=== PATIENT | male | born 1960 | race Caucasian/White ===

== ENCOUNTER 2017-08-20 15:35 | Inpatient (IN) | payer BC ==
[2017-08-20] VITALS (7 sets, daily range): BP systolic 128–169; BP diastolic 80–96
[~2017-08-20] VITALS: Ht 185.4 cm; Wt 134.8 kg
--- NOTE | ~2017-08-20 | PROC NOTE ---
[place], [place] PROCEDURE NOTE NAME: RONEN PRABHAKAR SR UNIT #: [id number] ROOM: [facility] DOCTOR: RIKA ARCHULETA MD,ROSA MARIA BIRTHDATE: [birth year] DOS: 08/22/2017 PROCEDURE: Preoperative bronchoscopy was done for the patient in the OR. PREOPERATIVE DIAGNOSIS: Area of atelectasis of right lower lobe for this patient with possibility acute pneumonia. POSTOPERATIVE DIAGNOSIS: Area of atelectasis of right lower lobe for this patient with possibility acute pneumonia. PROCEDURE DESCRIPTION: Informed consent obtained from the patient. The patient was brought to the OR and placed in supine position. Conscious sedation administered by the Anesthesia Department. After achieving proper sedation, airway introduced into the mouth. Bronchoscope advanced to the airway into laryngeal area. Epiglottis vocal cord were seen. Vocal cords were moving symmetrically with movements. Bronchoscope and vocal cords and tracheal lumen. The tracheal lumen for the patient was noted with minimal secretion, which was suctioned out. The right upper, right middle, right lower, left upper, lingular and lower lobe bronchi were all examined. Small to moderate amount of secretion which appeared to be purulent in the left endobronchial tree, which was suctioned out. There were no endobronchial obstruction noted in any of the endobronchial tree including the right lower lobe. The bronchial washing taken from right lower lobe for the patient without any difficulty. Bronchial washing sent for all the cultures. Procedure well tolerated by the patient. Postoperative findings were discussed with the patient's family members in the recovery room. No changes in treatment at this time will be needed. ROSA MARIA MELÉNDEZ MD CM:PROCNOTE:PROCEDURE NOTE [id number] ROSA MARIA ARCHULETA MD
--- NOTE | ~2017-08-20 | CON ---
[place], [place] REPORT OF CONSULTATION NAME: [facility]AKAR SR [facility]: [id number] UNIT #: [id number] ROOM: [facility] DOCTOR: RIKA ARCHULETA MDROSA MARIA BIRTHDATE: [birth year] DOS: 08/21/2017 PULMONARY CONSULTATION, EVALUATION AND MANAGEMENT REASON FOR CONSULTATION: To assess the patient for current shortness breath, wheezing and cough. HISTORY OF PRESENT ILLNESS: This is a 56-year-old white male patient who has been seen in my office yesterday for followup visit after initial assessment. The patient was seen originally in office on 08/14/2017. The patient reported having symptoms of shortness of breath, which occurs with minimal exertion. These symptoms of shortness of breath has been noted with gradual progression over the last several months. The patient was noted with significant severe exercise intolerance. He was seen in the office yesterday, noted with severe increased shortness of breath that started last Sunday. The patient's symptoms were also noted with cough, which has been noted mild to moderate without any sputum expectoration. He was also noted with severe audible wheezing yesterday. After assessment in the office, the patient was sent to the Emergency Room for further assessment for this problem and possible hospitalization. The patient assessed in the Emergency Room and admitted to the hospital. The pulse oxygen saturation noted 91% at rest on room air. Since hospitalization, the patient has been still noted symptoms of shortness breath, which were noted somewhat decreased from previously. Denies symptoms of chest pain or hemoptysis. Denies symptoms of chest trauma. REVIEW OF SYSTEMS: CONSTITUTIONAL: He does report symptoms of fatigue, tiredness. There were no symptoms of fever or chills. EYES: Denies any burning, redness, or tenderness. EARS, NOSE, AND THROAT SYMPTOMS: Denies sore throat, hoarseness, otalgia, postnasal drainage or epistaxis. CARDIOVASCULAR: Denies anginal pain, edema, pain of the lower extremities or palpitation. GASTROINTESTINAL SYMPTOMS: The patient denies symptoms of nausea, vomiting, diarrhea, abdominal pain, hematemesis, melena, hematochezia, abnormal weight loss, history of chronic severe obesity was noted, which was progressive. GENITOURINARY SYMPTOMS: No dysuria, suprapubic pain or hematuria. MUSCULOSKELETAL SYMPTOMS: Without any acute deformities. SKIN: Denies any abnormal lesions or rashes. MUSCULOSKELETAL SYMPTOMS: For the patient was noted without any pain or deformities or redness or tenderness. CENTRAL NERVOUS SYSTEM: The patient denies dizziness, headache, diplopia or syncopal episodes. Remaining systems were reviewed. They were noted all negative. PAST MEDICAL HISTORY: 1. Known with history of bronchial asthma. 2. Obstructive sleep apnea disorder treated with the CPAP. 3. The patient with moderate obesity, BMI of 38. [place], [place] REPORT OF CONSULTATION NAME: RONEN PRABHAKAR SR UNIT #: [id number] ROOM: [facility] DOCTOR: RIKA ARCHULETA MD,ROSA MARIA BIRTHDATE: [birth year] 4. Intervertebral disk disease of the spine. 5. Gastroesophageal reflux. 6. Essential hypertension. 7. Neurotic depression. 8. Peripheral neuropathy. 9. Allergic rhinitis. PAST SURGICAL HISTORY: Noted with a rhinoplasty. SOCIAL HISTORY: The patient is , has 2 children, lives at home. He has worked 36 years in the [employer]. He was noted a nonsmoker lifetime. FAMILY HISTORY: The patient's father at 75 due to complication of myocardial infarction. Mother at age 6060 years old, complication of myocardial infarction as well. CURRENT MEDICATIONS: As follows: 1. Invokana 100 mg p.o. daily. 2. Sertraline 100 mg daily. 3. Protonix 20 mg p.o. b.i.d. 4. Aspirin 81 mg p.o. daily. 5. Metoprolol succinate 50 mg daily. 6. Losartan 100 mg daily. 7. Enoxaparin 40 mg subcutaneous daily for DVT prophylaxis. 8. Potassium phosphate 500 mg p.o. t.i.d. 9. Mucinex 1200 mg p.o. b.i.d. 10. Ranexa 500 mg p.o. b.i.d. 11. Levemir insulin. 12. IV Solu-Medrol 60 mg q.8 hours. 13. DuoNeb q.4 hours. 14. Levaquin 500 mg IV daily. 15. Other p.r.n. medication for symptoms management. DRUG ALLERGIES: NOTED ALLERGY TO THE HYDROCODONE. PHYSICAL EXAMINATION: GENERAL: This is a 56-year-old white male who has been currently noted awake and alert without any acute distress this morning. The patient height was recorded 6 feet 1 inch, weight of 291 pounds, BMI 38. VITAL SIGNS: Noted normal temperature, respiratory rate 16-20, heart rate 78-75, blood pressure 129/76-147/96. Pulse oxygen saturation of the patient recorded on 2 L nasal cannula 92% saturation. HEENT: Shows severe obesity, which is noted chronic. Head was atraumatic. Eyes nonicterus. Severe reduced posterior pharyngeal space with high tongue base and crowding of soft tissue structures. NECK: Noted with chronic obesity. CARDIOVASCULAR: S1, S2 audible without any added sounds. LUNGS: Noted generally reduced breath sounds in the lungs bilaterally with expiratory wheezing noted in the lungs. ABDOMEN: Noted severe obesity. Bowel sounds present without any tenderness. [place], [place] REPORT OF CONSULTATION NAME: RONEN PRABHAKAR SR UNIT #: [id number] ROOM: [facility] DOCTOR: RIKA ARCHULETA MD,ROSA MARIA BIRTHDATE: [birth year] EXTREMITIES: Noted chronic obesity without any edema, clubbing, cyanosis. VISIBLE SKIN: No lesions or rashes. CENTRAL NERVOUS SYSTEM: The patient was noted cranial nerves 2-12 intact. MUSCULOSKELETAL: Without any acute deformities. LABORATORY DATA: The lactic acid noted yesterday 2.0 on admission. CBC on 08/20/2017; WBC count 11.2, hemoglobin 17.8, hematocrit 53.4, platelet count 26,000. The lactic acid later noted 2.8. Follow up lactic acid 1.7. Troponin was normal. CBC of patient that was done this morning; hemoglobin 18.3, hematocrit 54.3 with platelet count as normal. CMP of the patient this morning; hemoglobin and hematocrit normal, platelet count were normal. Phosphorus 2.1. The PT, PTT of patient this morning were noted as normal. Chest x-ray 1 view that was done for this patient was noted without any acute abnormal process except elevation of right hemidiaphragm, which has been known previously remains unchanged. IMPRESSION: 1. The patient with current symptoms of shortness of breath with acute exacerbation of chronic obstructive pulmonary disease with worsening of the shortness of breath. 2. Polycythemia, most likely secondary to chronic exertional hypoxia, nocturnal hypoxia would be considered. 3. History of obstructive sleep apnea disorder. 4. Severe obesity as well. 5. Fever. CT scan of the chest that was done in [facility] for the patient on 07/23/2017 shows some area of atelectasis and pneumonia in the right lower lobe. 6. Possibility of pneumonia, cannot be excluded. 7. The patient with general anxiety disorder as well. PLAN OF THERAPY: At this time, the patient will be continued on the current dose of corticosteroids without any changes and bronchodilators. CT scan of the chest will be repeated again with intravenous contrast to exclude any additional pulmonary process. However, the sniff test to be completed initially to rule out diaphragmatic paralysis. Therapeutic bronchoscopy was also discussed with the patient to be done tomorrow morning for assessment of the right lower lobe for possible atelectasis with pneumonia. The risks and benefits of procedure were discussed. Oxygen supplementation, maintain saturation 90% or greater. Continue to monitor hemoglobin and hematocrit closely. If the hemoglobin and hematocrit continue to increase, therapeutic phlebotomy will be needed. Supportive therapy, plan of management. The patient would also require to be assessed to optimize the management of sleep apnea disorder in future as well. He might require oxygen assessment prior to home discharge for the need of oxygen at home to be determined. All other supportive therapy, plan of management and care plan. Thanks for allowing me to participate in the care of this patient. [place], [place] REPORT OF CONSULTATION NAME: RONEN [facility]AKAR SR [facility] [id number] UNIT #: [id number] ROOM: [facility] DOCTOR: ROSA MARIA GARG MD BIRTHDATE: [birth year] ROSA MARIA MELÉNDEZ MD CM:CONSTR:REPORT OF CONSULTATION 1338 08/22/17 0045 interface
--- NOTE | ~2017-08-20 | PROC NOTE ---
[place], [place] PROCEDURE NOTE NAME: RONEN PRABHAKAR SR UNIT #: [id number] ROOM: 501 DOCTOR: MAYELIN PONCE BIRTHDATE: [birth year] DOS: 08/23/2017 MODIFIED BARIUM SWALLOW LOCATION: [facility], room 501, bed 1. ORDERING PHYSICIAN: Moni Rangel. RADIOLOGIST: Dr. Eugene. BACKGROUND INFORMATION: The patient is a 56-year-old male who was seen for a modified barium swallow. This test was ordered to rule out aspiration due to progressive shortness of breath and pneumonia. Further medical history includes bronchitis, hypertension, diabetes, neuropathy in feet, obstructive sleep apnea with use of CPAP and GERD. The patient currently receives a regular diet and thin liquid. He reported difficulty with swallowing characterized by food sticking in the mid sternal area in the past. He reported that this has not been occurring lately. He did state that he has had esophageal dilation performed twice and stated that he is scheduled for a third dilation in about a month. He currently receives a regular diet and thin liquids for today's assessment. He was alert and able to follow all commands. Oral peripheral examination revealed presence of natural teeth and lingual labial and buccal skills within normal limits in terms of strength, range of motion, and coordination. The patient reported an improvement in his breathing. He was not requiring oxygen at the time of assessment. METHODS AND MATERIALS USED FOR THE EXAM: The patient was positioned in the lateral plane and exam was viewed under fluoroscopy. The patient was presented with a variety of consistencies to assess swallowing skills including applesauce mixed with barium presented in half teaspoon amounts, barium-coated cookie, and sandwich taken in bite size pieces and thin liquid barium taken by cup. ORAL PHASE: Unremarkable. PHARYNGEAL PHASE: Unremarkable. ESOPHAGEAL PHASE: This phase of the swallow was not formally assessed during this exam. IMPRESSIONS AND RECOMMENDATIONS: Based upon assessment results, this 56-year-old patient presents with oral and pharyngeal swallowing skills that are within normal limits. Recommend the patient remain on present diet. Follow up therapy is not warranted at this time. Results and recommendations were shared with the patient and his nurse and they verbalized understanding. Thank you very much for this referral. Should you have any questions regarding this patient, please contact the speech pathologist at [phone]. [place], [place] PROCEDURE NOTE NAME: RONEN PRABHAKAR SR UNIT #: [id number] ROOM: [facility] DOCTOR: MAYELIN PONCE BIRTHDATE: [birth year] MAYELIN PONCE CM:PROCNOTE:PROCEDURE NOTE 1130 1222 MAYELIN PONCE
--- NOTE | ~2017-08-20 | PR ---
[place], [place] PROGRESS NOTE NAME: RONEN PRABHAKAR SR UNIT #: [id number] ROOM: 501 DOCTOR: ROSA MARIA GARG MD BIRTHDATE: [birth year] DOS: 08/23/2017 SUBJECTIVE: The patient was noted comfortable at this time with continued reduction in symptoms of shortness of breath. Bronchoscopy was completed yesterday. Denies symptoms of chest pain or abdominal pain. Denies symptoms of hemoptysis. The patient has been assessed yesterday for the need of home oxygen and did qualify for the oxygen need. OBJECTIVE: VITAL SIGNS: Normal temperature, respiratory rate 18, heart rate 99, blood pressure 156/93. Pulse oxygen saturation of the patient was noted at 92% on room air. HEENT: Examination shows head was atraumatic. Eyes nonicterus. NECK: Supple. CARDIOVASCULAR: S1, S2 is audible. LUNGS: The patient was noted without any crackle. Breaths are noted [id number] decreased with improvement in the wheezing. ABDOMEN: Soft and obese. EXTREMITIES: Without edema. LABORATORY DATA: CBC today: WBC count 16.2 with normal hemoglobin, hematocrit, and platelets. The culture of the bronchial washing with normal joe. Gram stain, many white blood cells, moderate gram-positive cocci in pairs and chains. IMPRESSION: Possibility of acute right lower lobe pneumonia ____ atelectasis, elevation of the right hemidiaphragm with acute respiratory failure. PLAN OF MANAGEMENT: The patient rather could be considered from discharge tapering dose of prednisone, oral antibiotics, but he will be monitored. He will be needing oxygen supplementation in the home setting for the patient as the patient was assessed by the respiratory therapy staff yesterday. We will be requiring 2 liters of oxygen supplementation with exertion and sleep. Outpatient followup will be done for this patient. Followup visit in a couple of weeks was advised. [place], [place] PROGRESS NOTE NAME: RONEN PRABHAKAR SR UNIT #: [id number] ROOM: [facility] DOCTOR: ROSA MARIA GARG MD BIRTHDATE: [birth year] ROSA MARIA MELÉNDEZ MD CM:PNTRANS [id number] ROSA MARIA ARCHULETA MD 08/23/171948 interface
--- NOTE | ~2017-08-20 | PR ---
[place], [place] PROGRESS NOTE NAME: RONEN PRABHAKAR SR [facility] [id number] UNIT #: [id number] ROOM: 501 DOCTOR: RIKA ARCHULETA MDROSA MARIA BIRTHDATE: [birth year] DOS: 08/22/2017 SUBJECTIVE: The patient was still noted with cough. The patient noted nonproductive with wheezing and shortness of breath with mild exertion. Denies symptoms of chest pain. Denies abdominal pain. Denies dizziness, headache, or diplopia. Denies any edema or pain of the lower extremity. The patient was noted with hyperglycemia, sent for this patient with use of the corticosteroids. Remaining systems were reviewed. They were noted all negative. OBJECTIVE: VITAL SIGNS: The patient shows a normal temperature, respiratory rate of 20, heart rate 91-110, blood pressure 144/83-138/84. Pulse oxygen saturation noted on 2 liter nasal cannula was 94% saturation. HEENT: Examination shows head was atraumatic. Eyes nonicterus. NECK: Supple. CARDIOVASCULAR: S1, S2 was audible. LUNGS: The patient was noted moderately, reduced breath sounds bilaterally with expiratory wheezing. There were no crackles. ABDOMEN: Noted chronic moderate severe obesity, nontender, bowel sounds present. EXTREMITIES: Without any acute edema. Visible skin without any lesions or rashes. GENITOURINARY: Intact. MUSCULOSKELETAL: Without any acute deformities. LABORATORY DATA: The patient's CTA of the chest reviewed yesterday shows evidence of atelectasis, right lower lobe persistent elevation of the right hemidiaphragm without any other nodules. Possibly consolidation can be completely excluded. CBC on 08/22/2017, WBC count 18,000, hemoglobin 17.3, hematocrit 52.0, platelet count 134,000. BMP, normal BUN and creatinine. IMPRESSION: 1. The patient who has been currently noted with suspected acute pneumonia, right lower lobe with acute exacerbation of chronic obstructive pulmonary disease. 2. Uncontrolled hyperglycemia with history of diabetes mellitus 3. Chronic obesity with obstructive sleep apnea disorder. 4. Elevation of the right diaphragm at this time. The reason was unknown. 5. The patient with a second polycythemia was noted with reduction of the hematocrit. PLAN OF TREATMENT: Continue oxygen supplementation, bronchodilators, antibiotics. The patient current dose of corticosteroids. Management of the diabetes, the patient's hyperglycemia will be continued. The bronchoscopy done today. The patient was noted n.p.o. past midnight for the procedure. In addition, treatment changes needs to be done after the rather bronchoscopy as necessary. [place], [place] PROGRESS NOTE NAME: RONEN PRABHAKAR SR UNIT #: [id number] ROOM: [facility] DOCTOR: ROSA MARIA GARG MD BIRTHDATE: [birth year] ROSA MARIA MELÉNDEZ MD CM:PNTRANS [id number] ROSA MARIA ARCHULETA MD 08/22/17 1540 interface
[2017-08-20] MEDS ORDERED: LYRICA200 M1 PO (16:04)
[2017-08-20] MEDS ORDERED: PERCOCET 10-321 EACH PO (16:08)
[2017-08-20] MEDS ORDERED: LEVORPHANOL TART2 MG PO (16:09)
[2017-08-20] MEDS ORDERED: COZAAR100 MG PO (16:10)
[2017-08-20] MEDS ORDERED: IBU800 M1 PO (16:11)
[2017-08-20] MEDS ORDERED: DEPO-TESTO100 MG/1 M IM (16:12)
[2017-08-20] MEDS ORDERED: INVOKANA100 M1 PO (16:13)
[2017-08-20] MEDS ORDERED: METOPROLOL SUCC50 M1 PO (16:13)
[2017-08-20] MEDS ORDERED: METFORMIN1000 MG PO (16:14)
[2017-08-20] MEDS ORDERED: TRESIBA FL100 UNIT/1 SQ (16:15)
[2017-08-20] MEDS ORDERED: PROAIR HFA8.5 GM INH (16:18)
[2017-08-20 16:31] LABS: HEMATOCRIT 53.4 % (42.0-52.0); HEMOGLOBIN 17.8 g/dl (14.0-18.0); MEAN CELL VOLUME 89.9 fl (80.0-94.0); MEAN CORPUSCULAR HGB CONC 33.3 g/dl (33.0-37.0); MEAN PLATELET VOLUME 10.1 fl (9.6-12.3); PLATELET COUNT AUTOMATED 206 10*3/uL (130-400); RED BLOOD COUNT 5.94 10*6/uL (4.50-5.90); WHITE BLOOD COUNT 11.2 10*3/uL (4.8-10.8)
[2017-08-20 16:48] LABS: ALBUMIN 3.5 gm/dl (3.1-4.5); ALKALINE PHOSPHATASE 112 U/L (45-117); BUN 12 mg/dl (7-24); CHLORIDE 101 mmol/L (98-107); CREATININE 1.11 mg/dL (0.70-1.30); POTASSIUM 4.4 mmol/L (3.5-5.1); SGOT/AST 17 IU/L (3-35); SGPT/ALT 25 U/L (12-78); SODIUM 137 mmol/L (136-145); TOTAL PROTEIN 7.6 gm/dL (6.4-8.2)
[2017-08-20 16:51] LABS: TROPONIN I < 0.015 ng/ml (<0.045)
[2017-08-20 16:55] LABS: PLATELET SUFFICIENCY NORMAL (NORMAL); TOTAL CELLS COUNTED 100 #CELLS
[2017-08-20] MEDS ORDERED: SERTRALINE HYD100 MG PO (17:32)
[2017-08-20] MEDS ORDERED: RANEXA500 M1 PO (20:33)
[2017-08-20] MEDS ORDERED: ADULT LOW DOSE81 MG PO (20:34)
[2017-08-20] MEDS ORDERED: PANTOPRAZOLE SO40 MG PO (22:51)
[2017-08-21 06:49] LABS: BASO # 0.1 10*3/uL (0.0-0.1); BASO % 0.5 % (0.0-1.0); EOS # 0.1 10*3/uL (0.0-0.4); EOS % 0.5 % (1.0-4.0); HEMATOCRIT 54.2 % (42.0-52.0); HEMOGLOBIN 18.3 g/dl (14.0-18.0); LYMPH # 1.2 10*3/uL (1.3-4.4); LYMPH % 11.6 % (27.0-41.0); MEAN CELL VOLUME 89.9 fl (80.0-94.0); MEAN CORPUSCULAR HGB 30.3 pg (27.0-31.0); MEAN CORPUSCULAR HGB CONC 33.8 g/dl (33.0-37.0); MEAN PLATELET VOLUME 10.1 fl (9.6-12.3); MONO # 0.2 10*3/uL (0.1-1.0); MONO % 1.4 % (3.0-9.0); NEUT % 85.4 % (47.0-73.0); PLATELET COUNT AUTOMATED 204 10*3/uL (130-400); RED BLOOD COUNT 6.03 10*6/uL (4.50-5.90); RED CELL DISTRI WIDTH 15.5 % (0-14.5); WHITE BLOOD COUNT 10.5 10*3/uL (4.8-10.8)
[2017-08-21 07:08] LABS: ALBUMIN 3.7 gm/dl (3.1-4.5); ALKALINE PHOSPHATASE 116 U/L (45-117); BUN 13 mg/dl (7-24); CHLORIDE 102 mmol/L (98-107); CHOLESTEROL 209 mg/dL (<200); CREATININE 0.98 mg/dL (0.70-1.30); HDL CHOLESTEROL 35 mg/dl (40-60); LDL CHOLESTEROL 154 mg/dL (9-159); PHOSPHOROUS 2.1 mg/dL (2.5-4.9); POTASSIUM 4.6 mmol/L (3.5-5.1); SGOT/AST 16 IU/L (3-35); SGPT/ALT 25 U/L (12-78); SODIUM 136 mmol/L (136-145); TOTAL PROTEIN 7.8 gm/dL (6.4-8.2); TRIGLYCERIDES 101 mg/dl (<150); VLDL CHOLESTEROL 20 mg/dL (6-40)
[2017-08-21 07:13] LABS: THYROID STIM HORMONE (HS) 0.398 uIU/ml (0.358-4.75)
[2017-08-21 08:00] VITALS: BP 131/86
[2017-08-21 08:31] LABS: VITAMIN D, 25-HYDROXY 25.1 ng/mL (30-100)
[2017-08-21 12:00] VITALS: BP 129/76
[2017-08-21 16:00] VITALS: BP 129/79
[2017-08-21 20:00] VITALS: BP 144/83
[2017-08-22] VITALS (8 sets, daily range): BP systolic 108–152; BP diastolic 58–96
[2017-08-22 06:35] LABS: BASO % 0.2 % (0.0-1.0); EOS % 0.1 % (1.0-4.0); HEMOGLOBIN 17.3 g/dl (14.0-18.0); LYMPH # 1.4 10*3/uL (1.3-4.4); MEAN CELL VOLUME 88.3 fl (80.0-94.0); MEAN CORPUSCULAR HGB 29.4 pg (27.0-31.0); MEAN CORPUSCULAR HGB CONC 33.3 g/dl (33.0-37.0); MEAN PLATELET VOLUME 10.7 fl (9.6-12.3); MONO % 5.6 % (3.0-9.0); NEUT # 15.4 10*3/uL (2.3-7.9); NEUT % 85.3 % (47.0-73.0); PLATELET COUNT AUTOMATED 234 10*3/uL (130-400); RED BLOOD COUNT 5.89 10*6/uL (4.50-5.90); RED CELL DISTRI WIDTH 15.1 % (0-14.5)
[2017-08-22 07:01] LABS: BUN 19 mg/dl (7-24); CHLORIDE 102 mmol/L (98-107); POTASSIUM 3.8 mmol/L (3.5-5.1); SODIUM 138 mmol/L (136-145)
[2017-08-22 07:02] LABS: CREATININE 0.99 mg/dL (0.70-1.30); PHOSPHOROUS 2.4 mg/dL (2.5-4.9)
[2017-08-23] VITALS: BP 126/76
[2017-08-23 06:22] LABS: HEMATOCRIT 49.3 % (42.0-52.0); HEMOGLOBIN 16.9 g/dl (14.0-18.0); MEAN CELL VOLUME 89.6 fl (80.0-94.0); MEAN CORPUSCULAR HGB 30.7 pg (27.0-31.0); MEAN CORPUSCULAR HGB CONC 34.3 g/dl (33.0-37.0); MEAN PLATELET VOLUME 10.4 fl (9.6-12.3); PLATELET COUNT AUTOMATED 205 10*3/uL (130-400); RED CELL DISTRI WIDTH 15.8 % (0-14.5); WHITE BLOOD COUNT 16.2 10*3/uL (4.8-10.8)
[2017-08-23 06:36] LABS: BUN 19 mg/dl (7-24); CHLORIDE 105 mmol/L (98-107); CREATININE 0.91 mg/dL (0.70-1.30); POTASSIUM 4.1 mmol/L (3.5-5.1); SODIUM 141 mmol/L (136-145)
[2017-08-23 06:55] LABS: BURR CELLS FEW; PLATELET SUFFICIENCY NORMAL (NORMAL); TOTAL CELLS COUNTED 100 #CELLS
[2017-08-23 08:00] VITALS: BP 156/93
[2017-08-23 12:00] VITALS: BP 131/95
[2017-08-23] MEDS ORDERED: OXYGEN NAS (13:50)
[2017-08-23] MEDS ORDERED: VITAMIN D-32000 UNIT PO (13:52)
[2017-08-23] MEDS ORDERED: K-PHOS500 MG PO (13:52)
[2017-08-23] MEDS ORDERED: DOXYCYCLINE100 M3 PO (13:55)
[2017-08-23 15:06] LABS: ACID FAST SPEC PROCESSING Concentration (.)
== END 2017-08-23 14:47 | disposition home or self-care (01) | DRG 871 ==
LOC: ED 15:35 → EDHOLD 18:03 → 5E 18:03
PROVIDERS: Hospitalist; Internal Medicine Critical Care Medicine; Internal Medicine Nephrology; Physician Assistant
PROC: 0B918ZZ Drainage of Trachea, Via Natural or Artificial Opening Endoscopic (ICD-10-PCS; principal; 2017-08-22)
PROC: 0BD48ZX Extraction of Right Upper Lobe Bronchus, Via Natural or Artificial Opening Endoscopic, Diagnostic (ICD-10-PCS; principal; 2017-08-22)
PROC: 0B968ZZ Drainage of Right Lower Lobe Bronchus, Via Natural or Artificial Opening Endoscopic (ICD-10-PCS; principal; 2017-08-22)
PROC: 0B988ZZ Drainage of Left Upper Lobe Bronchus, Via Natural or Artificial Opening Endoscopic (ICD-10-PCS; principal; 2017-08-22)
PROC: 0B998ZZ Drainage of Lingula Bronchus, Via Natural or Artificial Opening Endoscopic (ICD-10-PCS; principal; 2017-08-22)
PROC: 0B948ZZ Drainage of Right Upper Lobe Bronchus, Via Natural or Artificial Opening Endoscopic (ICD-10-PCS; principal; 2017-08-22)
PROC: 0B9B8ZZ Drainage of Left Lower Lobe Bronchus, Via Natural or Artificial Opening Endoscopic (ICD-10-PCS; principal; 2017-08-22)
PROC: BD11YZZ Fluoroscopy of Esophagus using Other Contrast (ICD-10-PCS; 2017-08-23)
DX: A41.9 Sepsis, unspecified organism (principal); J96.01 Acute respiratory failure with hypoxia; J18.1 Lobar pneumonia, unspecified organism; E11.65 Type 2 diabetes mellitus with hyperglycemia; E11.42 Type 2 diabetes mellitus with diabetic polyneuropathy; D75.1 Secondary polycythemia; F33.9 Major depressive disorder, recurrent, unspecified; E44.1 Mild protein-calorie malnutrition; J44.1 Chronic obstructive pulmonary disease with (acute) exacerbation; I25.118 Atherosclerotic heart disease of native coronary artery with other forms of angina pectoris; K21.9 Gastro-esophageal reflux disease without esophagitis; I10 Essential (primary) hypertension; E66.01 Morbid (severe) obesity due to excess calories; E83.39 Other disorders of phosphorus metabolism; F41.1 Generalized anxiety disorder; D72.821 Monocytosis (symptomatic); E34.9 Endocrine disorder, unspecified; G47.33 Obstructive sleep apnea (adult) (pediatric); Z79.4 Long term (current) use of insulin; Z79.84 Long term (current) use of oral hypoglycemic drugs; Z68.38 Body mass index [BMI] 38.0-38.9, adult; Z79.899 Other long term (current) drug therapy; Z88.8 Allergy status to other drugs, medicaments and biological substances; Z83.3 Family history of diabetes mellitus; Z82.49 Family history of ischemic heart disease and other diseases of the circulatory system; Z83.2 Family history of diseases of the blood and blood-forming organs and certain disorders involving the immune mechanism

== ENCOUNTER → 2017-09-06 | Outpatient (CLI) | payer BC ==
[~2017-09-06] MED LIST: ADULT LOW DOSE81 MG PO; COZAAR100 MG PO; DEPO-TESTO100 MG/1 M IM; DOXYCYCLINE100 M3 PO; IBU800 M1 PO; INVOKANA100 M1 PO; K-PHOS500 MG PO; LEVORPHANOL TART2 MG PO; LYRICA200 M1 PO; METFORMIN1000 MG PO; METOPROLOL SUCC50 M1 PO; OXYGEN NAS; PANTOPRAZOLE SO40 MG PO; PERCOCET 10-321 EACH PO; PROAIR HFA8.5 GM INH; RANEXA500 M1 PO; SERTRALINE HYD100 MG PO; TRESIBA FL100 UNIT/1 SQ; VITAMIN D-32000 UNIT PO
== END | disposition home or self-care (01) ==
LOC: LAB 12:37
DX: R53.83 Other fatigue (principal)

== ENCOUNTER → 2021-11-08 | Outpatient (CLI) | payer SELFPAY | END | disposition home or self-care (01) | LOC: CANPRECLI → RESCLI 02:53 | PROVIDERS: ATTEND Internal Medicine | DX: G62.9 Polyneuropathy, unspecified (principal); Z53.9 Procedure and treatment not carried out, unspecified reason; E11.9 Type 2 diabetes mellitus without complications; J44.9 Chronic obstructive pulmonary disease, unspecified; K59.00 Constipation, unspecified; F32.9 Major depressive disorder, single episode, unspecified; G89.29 Other chronic pain; G47.30 Sleep apnea, unspecified; E56.9 Vitamin deficiency, unspecified ==

== ENCOUNTER → 2021-11-08 | Outpatient (CLI) | payer MEDICARE | END | disposition home or self-care (01) | LOC: RESCLI 13:18 | PROVIDERS: ATTEND Internal Medicine | DX: G62.9 Polyneuropathy, unspecified (principal); E11.9 Type 2 diabetes mellitus without complications; E56.9 Vitamin deficiency, unspecified; J44.9 Chronic obstructive pulmonary disease, unspecified; J30.2 Other seasonal allergic rhinitis; I10 Essential (primary) hypertension; K59.00 Constipation, unspecified; K21.9 Gastro-esophageal reflux disease without esophagitis; F32.9 Major depressive disorder, single episode, unspecified; G89.29 Other chronic pain; G47.30 Sleep apnea, unspecified; Z79.899 Other long term (current) drug therapy ==

== ENCOUNTER → 2022-10-24 | Outpatient (CLI) | payer MEDICARE | END | disposition home or self-care (01) | LOC: RESCLI 00:38 | PROVIDERS: ATTEND Internal Medicine | DX: E11.9 Type 2 diabetes mellitus without complications (principal); I10 Essential (primary) hypertension; G62.9 Polyneuropathy, unspecified; K21.9 Gastro-esophageal reflux disease without esophagitis; J44.9 Chronic obstructive pulmonary disease, unspecified; G89.29 Other chronic pain; J98.6 Disorders of diaphragm; E55.9 Vitamin D deficiency, unspecified; G47.429 Narcolepsy in conditions classified elsewhere without cataplexy; E29.1 Testicular hypofunction; F32.9 Major depressive disorder, single episode, unspecified; Z98.890 Other specified postprocedural states; Z88.8 Allergy status to other drugs, medicaments and biological substances; Z79.84 Long term (current) use of oral hypoglycemic drugs; Z79.899 Other long term (current) drug therapy ==

== ENCOUNTER → 2023-10-18 | Outpatient (CLI) | payer MEDICARE | END | disposition home or self-care (01) | LOC: RESCLI 00:52 | PROVIDERS: ATTEND Internal Medicine | DX: I10 Essential (primary) hypertension (principal); E11.9 Type 2 diabetes mellitus without complications; G47.429 Narcolepsy in conditions classified elsewhere without cataplexy; G62.9 Polyneuropathy, unspecified; J44.9 Chronic obstructive pulmonary disease, unspecified; K21.9 Gastro-esophageal reflux disease without esophagitis; F32.9 Major depressive disorder, single episode, unspecified; C44.90 Unspecified malignant neoplasm of skin, unspecified; N52.9 Male erectile dysfunction, unspecified; E78.5 Hyperlipidemia, unspecified; G89.29 Other chronic pain; E56.9 Vitamin deficiency, unspecified; K59.09 Other constipation; Z79.899 Other long term (current) drug therapy; Z88.8 Allergy status to other drugs, medicaments and biological substances; Z98.890 Other specified postprocedural states ==

== ENCOUNTER → 2024-10-01 | Outpatient (CLI) | payer MEDICARE | LOC: RESCLI 03:18 | PROVIDERS: ATTEND Internal Medicine | DX: G62.9 Polyneuropathy, unspecified (principal); E11.9 Type 2 diabetes mellitus without complications; J44.9 Chronic obstructive pulmonary disease, unspecified; I10 Essential (primary) hypertension; K21.9 Gastro-esophageal reflux disease without esophagitis; F32.9 Major depressive disorder, single episode, unspecified; G89.29 Other chronic pain; G47.429 Narcolepsy in conditions classified elsewhere without cataplexy; E29.1 Testicular hypofunction; N52.9 Male erectile dysfunction, unspecified; K59.09 Other constipation; E56.9 Vitamin deficiency, unspecified ==

== ENCOUNTER → 2025-01-28 | Outpatient (CLI) | payer MEDICARE ==
[2025-01-28 10:47] LABS: BUN 25 mg/dl (9-23)
== END ==
LOC: LAB 10:00
PROVIDERS: ATTEND Internal Medicine Endocrinology, Diabetes & Metabolism
DX: E11.9 Type 2 diabetes mellitus without complications (principal)

== ENCOUNTER → 2025-05-02 | Outpatient (CLI) | payer MEDICARE ==
[2025-05-02 10:40] LABS: BUN 19 mg/dl (9-23); LDL CHOLESTEROL 81 mg/dL (9-159); SGPT/ALT 30 U/L (5-49)
== END | disposition home or self-care (01) ==
LOC: LAB 09:31
PROVIDERS: ATTEND Internal Medicine Endocrinology, Diabetes & Metabolism
DX: E78.5 Hyperlipidemia, unspecified (principal); E11.9 Type 2 diabetes mellitus without complications